=== PATIENT | male | born 1960 | race Caucasian/White ===

== ENCOUNTER 2018-11-07 12:20 | Emergency (ER) | payer OTHER ==
[2018-11-07] MEDS ORDERED: Sodium Chloride 0.9% 1,000 ML IV ONE (12:23)
[2018-11-07] MEDS ORDERED: Morphine 4 MG/ML Syringe IVPUSH ONE (12:23)
[2018-11-07] MEDS ORDERED: Ondansetron 4 MG/2 ML SDV IVPUSH ONE (12:23)
[2018-11-07 12:30] VITALS: BP 157/95
--- NOTE | 2018-11-07 12:30 | EDM.PDOC ---
ED HPI GENERAL MEDICAL PROBLEM - General Stated Complaint: FALL Time Seen by Provider: 11/07/18 12:21 Source of Information: Reports: Patient History Limitations: Reports: No Limitations - History of Present Illness INITIAL COMMENTS - FREE TEXT/NARRATIVE: HISTORY AND PHYSICAL: Trauma alert was called upon patient arrival. Dr. Farmer was directly involved with this case History of present illness: Patient is a 58-year-old male who presents to the emergency room by private vehicle after fall. Patient was climbing up a ladder and had fallen directly onto his bottom from approximately 8-10 feet. He denies hitting his head or any loss of consciousness. When he landed he felt and heard a "crunch". He states he has mid lumbar back pain. Denies any urinary or fecal incontinence. Denies any numbness or tingling to his distal extremities. Review of systems: As per history of present illness and below otherwise all systems reviewed and negative. Past medical history: As per history of present illness and as reviewed below otherwise noncontributory. Surgical history: As per history of present illness and as reviewed below otherwise noncontributory. Social history: See social history for further information Family history: As per history of present illness and as reviewed below otherwise noncontributory. Physical exam: General: Well-developed and well-nourished 58-year-old male. Alert and oriented. Nontoxic appearing and in no acute distress. HEENT: Nontender with palpation, normocephalic, pupils equal and reactive bilaterally, negative for conjunctival pallor or scleral icterus, mucous membranes moist, TMs normal bilaterally, throat clear, neck supple, nontender, trachea midline. No drooling or trismus noted. No meningeal signs. No hot potato voice noted. Lungs: Clear to auscultation, breath sounds equal bilaterally, chest nontender. Heart: S1S2, regular rate and rhythm without overt murmur Abdomen: Soft, nondistended, nontender. Negative for masses or hepatosplenomegaly. Negative for costovertebral tenderness. Pelvis: Stable nontender. Genitourinary: Deferred. Rectal: This was done with consent and chaparone at bedside. Good rectal tone Skin: Intact, warm, dry. No lesions or rashes noted. Extremities: Moves all per self,denies any numbness or tingling to the lower extremities, negative for cords or calf pain. Neurovascular unremarkable. C-spine/Back: Patient does have mild tenderness to the mid and upper lumbar spine. Otherwise no crepitus, step-offs or obvious deformities noted. Denies any numbness or tingling to her distal extremities. Denies any urinary or fecal incontinence. Denies satellite paresthesia. Able to move all extremities per self. Neuro: Awake, alert, oriented. Cranial nerves II through XII unremarkable. Cerebellum unremarkable. Motor and sensory unremarkable throughout. Exam nonfocal. Notes: Dr farmer was involved in this case. Chest x-ray shows no acute findings. Pelvis shows mild degenerative changes within the right hip with likely at least mild Type femoral acetabular impingement. No fractures, dislocations or acute bony abnormalities. Cervical spine has normal alignment. Vertebral body heights appear maintained. No fracture or acute osseous abnormality. Lumbar spine shows a partial image of a compressed deformed fracture of T11 vertebral body. This is only partially imaged, therefore I will add a thoracic spine CT. Vertebral bodies of the lumbar spine are preserved. Disc space narrowing and facet arthritic changes noted at L4-L5 and L5-S1 Superior endplate compression fracture noted at T11 is minimally vertebral body height loss and minimal retropulsion of fragments. There are degenerative changes noted in the remaining thoracic spine without any acute findings. This information was shared with the patient and coworker at bedside. Discussed the need for appropriate follow-up. Medication education and supportive care measures were reviewed and discussed. Voices understanding and is agreeable to plan of care. Denies any further questions or concerns at this time. Diagnostics: Chest Xray, Pelvis Xray, Lumbar Spine CT, Cervical Spine CT, Thoracis spine CT Therapeutics: Morphine, Zofran Prescription: [place] (#30) Impression: Compression Fracture T11 Plan: 1. Avoid any physical or strenuous activities until you're cleared by primary care or your orthopedic provider. 2. Tylenol and/or ibuprofen as needed for pain management. Please use the [place] as directed. This medication may cause drowsiness a do not take it will driving or needing to be functioning outside of the house. 3. Follow-up with Orthopedics; please call today to set up an appointment. Return to the ED as needed and as discussed. Definitive disposition and diagnosis as appropriate pending reevaluation and review of above. back Pain Score (Numeric/FACES): 10 - Related Data Allergies Allergy/AdvReac Type Severity Reaction Status Date / Time No Known Allergies Allergy Verified 11/07/18 12:27 Home Meds: Home Meds . [No Known Home Meds] 05/25/16 [History] Past Medical History - Past Health History Medical/Surgical History: Denies Medical/Surgical History ED ROS GENERAL - Review of Systems Review Of Systems: ROS reveals no pertinent complaints other than HPI. ED EXAM,LOWER BACK PAIN/INJURY - Physical Exam Exam: See Below (See dictation) Course - Vital Signs Last Recorded V/S: Last Vital Signs Temp 97.0 F 11/07/18 12:25 Pulse 95 11/07/18 12:25 Resp 20 11/07/18 12:25 BP 157/95 H 11/07/18 12:25 Pulse Ox 97 11/07/18 12:25 - Orders/Labs/Meds Orders: Active Orders 24 hr Category Date Time Status Admission Status [Patient Status] [ADT] Stat ADT 11/07/18 13:17 Active Labs: Laboratory Tests 11/07/18 11/07/18 Range/Units 12:20 12:20 WBC 5.80 (4.0-11.0) K/uL RBC 4.72 (4.50-5.90) M/uL Hgb 14.3 (13.0-17.0) g/dL Hct 41.9 (38.0-50.0) % MCV 88.8 (80.0-98.0) fL MCH 30.3 (27.0-32.0) pg MCHC 34.1 (31.0-37.0) g/dL RDW Std Deviation 42.2 (28.0-62.0) fl RDW Coeff of Lona 13 (11.0-15.0) % Plt Count 283 (150-400) K/uL MPV 9.70 (7.40-12.00) fL Neut % (Auto) 59.2 (48.0-80.0) % Lymph % (Auto) 26.9 (16.0-40.0) % [place] % (Auto) 11.2 (0.0-15.0) % Eos % (Auto) 2.4 (0.0-7.0) % Baso % (Auto) 0.3 (0.0-1.5) % Neut # (Auto) 3.4 (1.4-5.7) K/uL Lymph # (Auto) 1.6 (0.6-2.4) K/uL [place] # (Auto) 0.7 (0.0-0.8) K/uL Eos # (Auto) 0.1 (0.0-0.7) K/uL Baso # (Auto) 0.0 (0.0-0.1) K/uL Nucleated RBC % 0.0 /100WBC Nucleated RBCs # 0 K/uL Sodium 141 (136-148) mmol/L Potassium 4.3 (3.5-5.1) mmol/L Chloride 105 (98-107) mmol/L Carbon Dioxide 28.1 (21.0-32.0) mmol/L BUN 18 (7.0-18.0) mg/dL Creatinine 1.2 (0.8-1.3) mg/dL Est Cr Clr Drug Dosing 63.50 mL/min Estimated GFR (MDRD) > 60.0 ml/min Glucose 99 (74-106) mg/dL Calcium 8.6 (8.5-10.1) mg/dL Total Bilirubin 0.9 (0.2-1.0) mg/dL AST 29 (15-37) IU/L ALT 41 (14-63) IU/L Alkaline Phosphatase 66 (46-116) U/L Total Protein 7.0 (6.4-8.2) g/dL Albumin 3.7 (3.4-5.0) g/dL Globulin 3.3 (2.6-4.0) g/dL Albumin/Globulin Ratio 1.1 (0.9-1.6) Meds: Medications Discontinued Medications Generic Name Dose Route Start Last Admin Trade Name Freq PRN Reason Stop Dose Admin Sodium Chloride 1,000 mls @ 999 mls/hr 11/07/18 12:23 11/07/18 12:31 Normal Saline IV 11/07/18 13:23 999 mls/hr STAT ONE Administration Morphine Sulfate 4 mg 11/07/18 12:23 11/07/18 12:31 Morphine IVPUSH 11/07/18 12:24 4 mg ONETIME ONE Administration Ondansetron HCl 4 mg 11/07/18 12:23 11/07/18 12:31 Zofran IVPUSH 11/07/18 12:24 4 mg ONETIME ONE Administration Departure - Departure Time of Disposition: 14:14 Disposition: Home, Self-Care 01 Clinical Impression: Compression fracture - Discharge Information Referrals: PCP,None [Primary Care Provider] - Additional Instructions: The following information is given to patients seen in the emergency department who are being discharged to home. This information is to outline your options for follow-up care. We provide all patients seen in our emergency department with a follow-up referral. The need for follow-up, as well as the timing and circumstances, are variable depending upon the specifics of your emergency department visit. If you don't have a primary care physician on staff, we will provide you with a referral. We always advise you to contact your personal physician following an emergency department visit to inform them of the circumstance of the visit and for follow-up with them and/or the need for any referrals to a consulting specialist. The emergency department will also refer you to a specialist when appropriate. This referral assures that you have the opportunity for follow-up care with a specialist. All of these measure are taken in an effort to provide you with optimal care, which includes your follow-up. Under all circumstances we always encourage you to contact your private physician who remains a resource for coordinating your care. When calling for follow-up care, please make the office aware that this follow-up is from your recent emergency room visit. If for any reason you are refused follow-up, please contact the [facility] Emergency Department at and asked to speak to the emergency department charge nurse. [facility] [address] [place] [address] [id number] [address] [address] 1. Avoid any physical or strenuous activities until you're cleared by primary care or your orthopedic provider. 2. Tylenol and/or ibuprofen as needed for pain management. Please use the [place] as directed. This medication may cause drowsiness a do not take it will driving or needing to be functioning outside of the house. 3. Follow-up with Orthopedics; please call today to set up an appointment. Return to the ED as needed and as discussed. - My Orders Last 24 Hours: My Active Orders 11/07/18 13:17 Admission Status [Patient Status] [ADT] Stat - Assessment/Plan Last 24 Hours: My Active Orders 11/07/18 13:17 Admission Status [Patient Status] [ADT] Stat
--- NOTE | 2018-11-07 12:58 | CR ---
EXAMINATION: Portable chest radiograph. HISTORY: Fall. FINDINGS: The trachea is midline. The cardiomediastinal silhouette is within normal limits. No pulmonary infiltrates, effusions or pneumothorax. Osseous structures appear unremarkable. There appears to be a screwdriver projecting over the axillary region. IMPRESSION: No acute cardiopulmonary process.
--- NOTE | 2018-11-07 13:01 | CR ---
EXAMINATION: Pelvis HISTORY: Fall COMPARISON: None TECHNIQUE: AP view FINDINGS: There is no acute osseous abnormality, dislocation, or fracture. Bone mineralization is normal. SI joints are symmetric. Subchondral cystic change noted within the right acetabulum. The right femoral head appears widened. The iliopectineal lines are intact. IMPRESSION: 1. No acute findings noted. 2. Mild degenerative changes within the right hip with likely at least mild cam-type femoral acetabular impingement.
[2018-11-07 13:06] LABS: CHLORIDE,CL 105 mmol/L (98-107); SODIUM,NA 141 mmol/L (136-148)
--- NOTE | 2018-11-07 13:08 | CT ---
EXAMINATION: CT cervical and lumbar spine HISTORY: Fall COMPARISON: None TECHNIQUE: Axial CT imaging obtained through the cervical and lumbar spine without contrast. Coronal and sagittal reconstructions obtained. FINDINGS: Cervical spine: The cervical spinal alignment normal. Vertebral body heights appear maintained. Mild marginal osteophyte formation is noted. Mild uncovertebral hypertrophy noted at multiple levels. There is no fracture or acute osseous abnormality. Visualized intracranial compartments appear normal. Mild degenerative changes at the temporomandibular joints bilaterally. Paravertebral soft tissues are normal. Lung apices are clear. Lumbar spine: There is a partially imaged compression deformity noted at the T11 vertebral body. This is only partially imaged. Vertebral bodies of the lumbar spine are preserved. Disc space narrowing and facet arthritic changes noted at L4-L5 and L5-S1. Bone mineralization is otherwise normal. The SI joints are symmetric. Moderate diverticulosis in noted. IMPRESSION: 1. Partially visualized compression fracture at T11. 2. Otherwise no acute findings noted within the cervical or lumbar spine.
--- NOTE | 2018-11-07 14:06 | CT ---
EXAMINATION: CT thoracic spine HISTORY: Pain COMPARISON: None TECHNIQUE: Axial CT imaging obtained through the thoracic spine without contrast. Coronal and sagittal reconstructions obtained. FINDINGS: The thoracic spinal alignment is normal. There is a nondisplaced superior endplate compression fracture at T11. There is minimal retropulsion of fragments. Minimal vertebral body height loss. Otherwise the vertebral body heights appear otherwise maintained. Bone mineralization is otherwise normal. Facet arthritic changes are noted throughout the thoracic spine. Paravertebral soft tissues are normal. Atelectasis is noted within the adjacent lungs. IMPRESSION: 1. Superior endplate compression fracture noted at T11 is minimal vertebral body height loss and minimal retropulsion of fragments. 2. Degenerative changes noted within the remaining thoracic spine without acute findings.
== END 2018-11-07 14:25 | disposition home or self-care (01) ==
LOC: MW.ED 12:20
DX: S22.089A Unspecified fracture of T11-T12 vertebra, initial encounter for closed fracture (principal); W11.XXXA Fall on and from ladder, initial encounter
CPT/HCPCS: 71045; 72125; 72128; 72131; 72170; 80053; 85025; 96361; 96374; 96375; 99285; J2270; J2405; J7040